=== PATIENT | female | born 1950 | race Caucasian/White ===

== ENCOUNTER 2016-10-20 14:13 | Emergency (ER) | payer BC ==
[~2016-10-20] VITALS: Ht 157.5 cm; Wt 85.5 kg
[~2016-10-20 14:13] MED LIST: ASPI-676 PO; CLON0.2T12 PO; METO-53 PO; TRAM50TA2 PO
[2016-10-20 14:14] VITALS: Ht 157.5 cm; Wt 85.5 kg
[2016-10-20 15:53] VITALS: TEMP 98
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
[2016-10-20] MEDS ORDERED: TRAM50TA2 PO (18:24)
--- NOTE | 2016-10-20 18:43 | RADRPT ---
PROCEDURE: Chest x-ray CLINICAL INDICATION: Pain TECHNIQUE: Chest single view COMPARISON: None FINDINGS: The heart is mildly enlarged. Bony vessels are normal in caliber. There is a focal area of left pelayo perolateral pleural thickening. This may be due to underlying rib fractures which are not well visu alized. Lungs otherwise clear. Costophrenic angles are sharp. No pneumothorax is seen. Visualize d bony thorax is grossly unremarkable. IMPRESSION: 1. Small focal area of left superolateral pleural thickening. This may be related to an occult und erlying rib fracture which is not visualized on the single view. Consider rib series for further ev aluation. 2. Otherwise no acute cardiopulmonary disease. 3. No evidence of pneumothorax. 4. Mild cardiomegaly RPTAT: HH .Matty Leroy MD, Date Time Electronically viewed and signed by .Matty Leroy MD, on 10/20/2016 18:42 .W/
--- NOTE | 2016-10-20 18:44 | RADRPT ---
PROCEDURE: Shoulder x-ray CLINICAL INDICATION: Pain TECHNIQUE: Left shoulder 2 views COMPARISON: None FINDINGS: 2 views of the left shoulder demonstrate no displaced fracture. The humeral head articulates anatom ically with the glenoid fossa. There is mild degenerative change of acromioclavicular joint. Bones are mildly osteopenic. There is superolateral left pleural thickening. The etiology of this is un clear. IMPRESSION: No acute fracture dislocation Mild degenerative change of the acromioclavicular joint Incidental superolateral pleural thickening RPTAT: HH .Matty Leroy MD, Date Time Electronically viewed and signed by .Matty Leroy MD, on 10/20/2016 18:44 .W/
[2016-10-20 19:04] VITALS: BP 247/117; PULSE 87; RESP 20
== END 2016-10-20 19:05 | disposition home or self-care (01) ==
LOC: FTE 14:13
DX: S40.012A Contusion of left shoulder, initial encounter (principal); S20.212A Contusion of left front wall of thorax, initial encounter; I10 Essential (primary) hypertension; S22.32XA Fracture of one rib, left side, initial encounter for closed fracture; E11.9 Type 2 diabetes mellitus without complications; V89.2XXA Person injured in unspecified motor-vehicle accident, traffic, initial encounter; Z79.82 Long term (current) use of aspirin
CPT/HCPCS: 71010; 73030; 93005

== ENCOUNTER 2016-12-11 17:59 | Emergency (ER) | payer BC ==
[~2016-12-11] VITALS: Wt 83.0 kg
[2016-12-11] MEDS ORDERED: KETOROLAC 30 MG INJ IM STA (19:30)
--- NOTE | 2016-12-11 20:34 | RADRPT ---
PROCEDURE: CR Right Elbow CLINICAL INDICATION: Fall, pain TECHNIQUE: AP, lateral, and an oblique radiographs were submitted. COMPARISON: None FINDINGS: Osseous Structures: The osseous elements appear well mineralized and intact. There is a small benign -appearing exostosis extending ventrally off the proximal radial tuberosity. There is a small spur also seen off the lateral epicondyle of the distal right humerus. Joint Spaces: The joint spaces are well maintained. No joint effusion is evident. Soft Tissues: Appear unremarkable. IMPRESSION: 1. No fracture, dislocation, or joint effusion is evident. 2. Small benign spurs are seen 1 off the lateral distal right humeral epicondyle and 1 off the prox imal right radial tuberosity. Physician Maine Date Time Electronically viewed and signed by Physician Maine on 12/11/2016 20:34 /
--- NOTE | 2016-12-11 20:34 | RADRPT ---
PROCEDURE: XR Lumbar Spine. CLINICAL INDICATION: 66-year-old female. Fall TECHNIQUE: AP, lateral and cone-down lateral view of the lumbar spine were obtained. COMPARISON: No prior studies are available for comparison. FINDINGS: There are 5 lumbar-type vertebrae. Lumbar spine is imaged from T11 to the sacrum. Normal alignment. Negative for acute fracture or traumatic subluxation. There is multilevel mild degenerative disk disease greatest at L2-3 with disk space narrowing, endpl ate sclerosis and osteophytes. The posterior elements are unremarkable. Sacroiliac joints appear normal. The soft tissues appear normal. IMPRESSION: Negative for evidence of acute fracture or traumatic subluxation of lumbar spine. RPTAT: HCTS Physician Enoch Date Time Electronically viewed and signed by Physician Enoch on 12/11/2016 20:34 CS/
--- NOTE | 2016-12-11 20:35 | RADRPT ---
PROCEDURE: XR Knee. CLINICAL INDICATION: Left knee pain. TECHNIQUE: Three views of the left knee. COMPARISON: None available FINDINGS: Negative for evidence of acute fracture or dislocation. Moderate osteoarthritis in the medial knee joint compartment with joint space narrowing and osteophy jose and mild patellofemoral arthritis. No joint effusion is identified. Negative for significant soft tissue swelling. IMPRESSION: Negative for evidence of acute fracture or dislocation of the left knee. RPTAT: HCTS Physician Enoch Date Time Electronically viewed and signed by Physician Enoch on 12/11/2016 20:35 CS/
--- NOTE | 2016-12-11 20:44 | ERD ---
ER Documentation Chief Complaint Date/Time DATE: 12/11/16 Chief Complaint Fall. Back pain. Left knee pain. Right elbow pain. Neck pain. HPI The patient is a 66-year-old female with history of hypertension, diabetes mellitus, arthritis, who presents to the Emergency Department with complaint of right elbow pain, left knee pain, left lumbar back pain, neck and head pain status post mechanical slip and fall. The patient reports that 2 days ago, while at the grocery store, she accidentally slipped on a peach, falling backwards and hitting her back and head against the ground. She is uncertain if she had loss of consciousness, though denies any seizure-like activity. Denies any incontinence, tongue biting or weakness of the distal extremities. The patient was then sat up by nearby shoppers, and noted some pain to her left knee and right elbow, which she had during the fall. The patient was then driven home by a friend. Upon waking up the next morning she noted increased pain to the neck, right elbow, left knee and lumbar back. She admits to intermittent throbbing pain to her head, which is relieved with ibuprofen. Last dose of ibuprofen was taken last night. She denies any visual changes, diplopia , blurred vision or vision loss. Denies any syncope. Denies any focal weakness, neurologic deficits, numbness or weakness of the distal extremities. Denies abdominal pain, nausea, vomiting. Denies difficulty with speech or ambulation. Denies chest pain, palpitations or shortness of breath. She rates her current pain as 8 out of 10. She admits to baby aspirin use, but otherwise denies any regular anticoagulant use. No other complaints at this time. ROS All systems reviewed and are negative except as per history of present illness. Medications Home Meds Active Scripts Ibuprofen* (Motrin*) 600 Mg Tab, 600 MG PO Q6, #20 TAB Prov:JUSTIN COBOS PA-C 12/11/16 Hydrocodone/Acetaminophen (Crandall 5-325 Tablet) 1 Each Tablet, 1 EACH PO Q6, #10 TAB Prov:JUSTIN COBOS PA-C 12/11/16 Tramadol HCl (Tramadol HCl) 50 Mg Tablet, 50 MG PO Q6 Y for PAIN, #20 TAB Prov:NATACHA BRADSHAW MD 10/20/16 Reported Medications Tramadol HCl (Tramadol HCl) 50 Mg Tablet, 50 MG PO DAILY 07/01/11 Aspirin (Lorrie Child) 81 Mg Chew, 81 MG PO DAILY 07/01/11 Metoprolol (Lopressor) 50 Mg Tablet, 50 MG PO DAILY 07/01/11 Clonidine Hcl* (Catapres*) 0.2 Mg Tablet, 0.2 MG PO BID 07/01/11 Allergies Allergies: Coded Allergies: No Known Allergy (Unverified , 07/01/11) PMhx/Soc History of Surgery: No Anesthesia Reaction: No Hx Neurological Disorder: No Hx Respiratory Disorders: No Hx Cardiac Disorders: Yes (HTN. DM. ARTHRITIS) Hx Psychiatric Problems: No Hx Miscellaneous Medical Probl: No Hx Alcohol Use: No Hx Substance Use: No Hx Tobacco Use: No Smoking Status: Never smoker Physical Exam Vitals Vital Signs Date Time Temp Pulse Resp B/P Pulse Ox O2 Delivery O2 Flow Rate FiO2 12/11/16 21:16 96 18 188/98 97 Room Air 12/11/16 18:04 99.0 101 17 178/89 98 Physical Exam GENERAL: Well-developed, well-nourished, female, in no acute distress. HEENT: Head is normocephalic, atraumatic. No hematomas. No step-offs. No raccoon eyes. No scleral pallor or icterus. Pupils equal, round and reactive to light. Extraocular movements intact. Conjunctiva pink. Nares are patent bilaterally. No nasal CSF leak. No hemotympanum. No Shetty sign. Clear oropharynx. NECK: Supple. Trachea midline. Mild tenderness to palpation over the left paracervical muscles of the neck. No midline bony tenderness or step-offs. No crepitus. No nuchal rigidity. No meningismus. RESPIRATORY: Lungs are clear to auscultation bilaterally. Equal breath sounds. Normal expiratory effort. CARDIOVASCULAR: Regular rate and rhythm. S1 and S2 normal. Distal pulses are palpable, 2+ bilaterally. Capillary refill is less than 2 seconds. GASTROINTESTINAL: Abdomen is soft, non-tender, and non-distended. No pulsatile abdominal masses. BACK: No midline tenderness. Tenderness to palpation and palpable spasm over the left paraspinal muscles of the lumbar back. No step-offs. No bony tenderness. Normal flexion and extension. Negative straight leg raise bilaterally. No saddle region anesthesia. EXTREMITIES: No clubbing, cyanosis, or edema. Normal skin perfusion. Mild tenderness palpation over the lateral aspect of the right elbow and to the anterior left knee. No joint effusions. No crepitus. Full range of motion of both the upper and lower extremities bilaterally. Muscle tone is normal. No focal swelling or erythema. Compartments are soft. Distal neurovascular status intact. No snuffbox tenderness. NEUROLOGIC: The patient is alert, awake, and oriented x 3. No focal neurologic deficits. Cranial nerves are grossly intact. Motor and sensation grossly intact. INTEGUMENT: Skin is intact. Warm and dry. No ecchymosis, abrasions, lacerations. PSYCHIATRIC: Cooperative; appropriate. Results 24 hrs Current Medications Medications (Trade) Dose Ordered Sig/Amanda Route PRN Reason Start Time Stop Time Status Last Admin Dose Admin Ketorolac Tromethamine (Toradol) 30 mg ONCE STAT IM 12/11/16 19:30 12/11/16 19:32 DC 12/11/16 19:45 Procedures/MDM DIAGNOSTIC TESTS AND INTERPRETATION: PROCEDURE: CR Right Elbow CLINICAL INDICATION: Fall, pain TECHNIQUE: AP, lateral, and an oblique radiographs were submitted. COMPARISON: None FINDINGS: Osseous Structures: The osseous elements appear well mineralized and intact. There is a small benign-appearing exostosis extending ventrally off the proximal radial tuberosity. There is a small spur also seen off the lateral epicondyle of the distal right humerus. Joint Spaces: The joint spaces are well maintained. No joint effusion is evident. Soft Tissues: Appear unremarkable. IMPRESSION: 1. No fracture, dislocation, or joint effusion is evident. 2. Small benign spurs are seen 1 off the lateral distal right humeral epicondyle and 1 off the proximal right radial tuberosity. Physician [place] Date Time Electronically viewed and signed by Physician Maine on 12/11/2016 20:34 PROCEDURE: XR Knee. CLINICAL INDICATION: Left knee pain. TECHNIQUE: Three views of the left knee. COMPARISON: None available FINDINGS: Negative for evidence of acute fracture or dislocation. Moderate osteoarthritis in the medial knee joint compartment with joint space narrowing and osteophytes and mild patellofemoral arthritis. No joint effusion is identified. Negative for significant soft tissue swelling. IMPRESSION: Negative for evidence of acute fracture or dislocation of the left knee. Physician Enoch Date Time Electronically viewed and signed by Physician Enoch on 12/11/2016 20: 35 PROCEDURE: XR Lumbar Spine. CLINICAL INDICATION: 66-year-old female. Fall TECHNIQUE: AP, lateral and cone-down lateral view of the lumbar spine were obtained. COMPARISON: No prior studies are available for comparison. FINDINGS: There are 5 lumbar-type vertebrae. Lumbar spine is imaged from T11 to the sacrum. Normal alignment. Negative for acute fracture or traumatic subluxation. There is multilevel mild degenerative disk disease greatest at L2-3 with disk space narrowing, endplate sclerosis and osteophytes. The posterior elements are unremarkable. Sacroiliac joints appear normal. The soft tissues appear normal. IMPRESSION: Negative for evidence of acute fracture or traumatic subluxation of lumbar spine. Physician Enoch Date Time Electronically viewed and signed by Physician Enoch on 12/11/2016 20: 34 PROCEDURE: CT HEAD WITHOUT CONTRAST: CLINICAL INDICATION: 66 years age, female, head injury . COMPARISON: None TECHNIQUE: CT of the head was performed without IV contrast. Dose information: The estimated radiation dose (CTDIvol mGy) for each series in this exam is 43 . The estimated cumulative dose (DLP mGy-cm) is 720 . FINDINGS: Parenchyma: No acute intracranial hemorrhage, mass effect or significant midline shift. Negative for evidence of large territory infarct. Mild predominantly frontal lobe cerebral tissue loss. Mild intracranial atherosclerosis. Ventricles and extra-axial spaces: Prominence of the ventricles, basal cisterns and sulci in keeping with predominantly frontal lobe tissue loss. Visualized paranasal sinuses: Clear. Mastoid air cells: Clear. Bones: No focal abnormality. Additional comment: None. IMPRESSION: 1. Negative for evidence of acute intracranial injury. Negative for evidence of acute intracranial hemorrhage or mass effect. 2. Mild predominately frontal lobe cerebral tissue loss. 3. Mild intracranial atherosclerosis. Physician Enoch Date Time Electronically viewed and signed by Physician Enoch on 12/11/2016 20: 47 PROCEDURE: CT CERVICAL SPINE WITHOUT CONTRAST CLINICAL INDICATION: 66-year-old female. Trauma. TECHNIQUE: A CT of the cervical spine was performed utilizing thin section axial images from the skull base through the thoracic inlet. Sagittal and coronal reformatted images were made. The CTDIvol is 22 mGy and the DLP is 141 mGycm. COMPARISON: No prior studies are available for comparison. FINDINGS: Cervical spine is imaged from the skull base to T1 Alignment: Normal. Vertebrae: Vertebral bodies and posterior elements are intact without acute fracture. There is developmental nonfusion of the posterior arch of C1. Multilevel degenerative disk disease greatest at C5-6 with disk space narrowing and osteophytes. There is ligamentous calcification involving the transverse ligament and the outer annulus of discs greatest at C3-4 and C4-5 that may be seen with CPPD. Extra-vertebral soft tissues: Prominent lymph nodes are likely reactive. Additional comment: Negative for apical pneumothorax. IMPRESSION:Negative for evidence of acute fracture or traumatic subluxation of cervical spine. Physician Enoch Date Time Electronically viewed and signed by Physician Enoch on 12/11/2016 20: 55 MEDICAL DECISION MAKING: This is a 66-year-old female presenting to the Emergency Department with right elbow pain, left lumbar back pain, left knee pain, neck pain, head pain s/p slip and fall in the grocery store 2 days ago. The patient pain hand mild tenderness to palpation over the lateral right elbow, anterior left knee and left paraspinal muscles of the back on physical examination. Her extremities were neurovascularly intact with no gross deformities or crepitus noted. No snuffbox tenderness. Compartments were soft. The differential diagnosis includes , but is not limited to, sprain, strain, fracture, dislocation, subluxation, neurovascular injury, compartment syndrome. CT head with no acute intracranial abnormalities. CT c-spine with no fractures, dislocations, subluxations. No evidence of neurovascular compromised distal to injury. No evidence of compartment syndrome or occult fracture. No significant acute abnormalities were noted on the diagnostic test modalities ordered. After rest and administration of Toradol, the patient reports no new complaints and decreased pain. Upon my review and interpretation of the patients presentation, clinical data, and overall ER course, I believe the patients symptoms are most consistent with right elbow contusion, left knee pain, lumbar back pain, cervical strain, head injury s/p fall. At this time, the patient is in stable condition, and therefore can be discharged home with a prescription for Ibuprofen and Crandall and strict return precautions for signs of worsening condition. The patient is advised to follow up with a primary care provider within 2 to 3 days for reevaluation and further management, or to return to the ER sooner for any worsening symptoms. She is instructed on further outpatient pain control methods , including rest, icing and elevation. I shared all diagnostic imaging studies with the patient at length and in great detail, and the patient verbally understands and agrees with the plan for further observation and care as an outpatient. At the time of discharge all questions were answered. Departure Diagnosis: Primary Impression: Fall Encounter type: initial encounter Qualified Code: W19.XXXA - Fall, initial encounter Additional Impressions: Contusion of right elbow Encounter type: initial encounter Qualified Code: S50.01XA - Contusion of right elbow, initial encounter Left knee pain Chronicity: acute Qualified Code: M25.562 - Acute pain of left knee Lumbar back pain Chronicity: acute Back pain laterality: left Sciatica presence: without sciatica Qualified Code: M54.5 - Acute left-sided low back pain without sciatica Cervical strain Encounter type: initial encounter Qualified Code: S16.1XXA - Cervical strain , initial encounter Closed head injury Encounter type: initial encounter Qualified Code: S09.90XA - Closed head injury, initial encounter Condition: Stable Patient Instructions: Contusion, Elbow, Fall, Mechanical, Neck Sprain/Strain, R.I.C.E. Additional Instructions: Call your primary care doctor TOMORROW for an appointment during the next 1-2 days.See the doctor sooner or return here if your condition worsens before your appointment time. JUSTIN COBOS PA-C Dec 11, 2016 20:44
--- NOTE | 2016-12-11 20:48 | RADRPT ---
PROCEDURE: CT HEAD WITHOUT CONTRAST: CLINICAL INDICATION: 66 years age, female, head injury . COMPARISON: None TECHNIQUE: CT of the head was performed without IV contrast. Dose information: The estimated radiation dose (CTDIvol mGy) for each series in this exam is 43 . The estimated cumulative dose (DLP mGy-cm) is 720 . FINDINGS: Parenchyma: No acute intracranial hemorrhage, mass effect or significant midline shift. Negative for evidence of large territory infarct. Mild predominantly frontal lobe cerebral tissue loss. Mild int racranial atherosclerosis. Ventricles and extra-axial spaces: Prominence of the ventricles, basal cisterns and sulci in keeping with predominantly frontal lobe tissue loss. Visualized paranasal sinuses: Clear. Mastoid air cells: Clear. Bones: No focal abnormality. Additional comment: None. IMPRESSION: 1. Negative for evidence of acute intracranial injury. Negative for evidence of acute intracranial hemorrhage or mass effect. 2. Mild predominately frontal lobe cerebral tissue loss. 3. Mild intracranial atherosclerosis. RPTAT: HCTS Physician Enoch Date Time Electronically viewed and signed by Physician Enoch on 12/11/2016 20:47 CS/
--- NOTE | 2016-12-11 20:55 | RADRPT ---
PROCEDURE: CT CERVICAL SPINE WITHOUT CONTRAST CLINICAL INDICATION: 66-year-old female. Trauma. TECHNIQUE: A CT of the cervical spine was performed utilizing thin section axial images from the s kull base through the thoracic inlet. Sagittal and coronal reformatted images were made. The CTDIv ol is 22 mGy and the DLP is 141 mGycm. COMPARISON: No prior studies are available for comparison. FINDINGS: Cervical spine is imaged from the skull base to T1 Alignment: Normal. Vertebrae: Vertebral bodies and posterior elements are intact without acute fracture. There is devel opmental nonfusion of the posterior arch of C1. Multilevel degenerative disk disease greatest at C5- 6 with disk space narrowing and osteophytes. There is ligamentous calcification involving the trans verse ligament and the outer annulus of discs greatest at C3-4 and C4-5 that may be seen with CPPD. Extra-vertebral soft tissues: Prominent lymph nodes are likely reactive. Additional comment: Negative for apical pneumothorax. IMPRESSION: Negative for evidence of acute fracture or traumatic subluxation of cervical spine. RPTAT: HCTS Physician Enoch Date Time Electronically viewed and signed by Physician Enoch on 12/11/2016 20:55 /
[2016-12-11] MEDS ORDERED: HYDR-906 PO (21:04)
[2016-12-11] MEDS ORDERED: IBUP-1542 PO (21:04)
[2016-12-11 21:16] VITALS: BP 188/98; PULSE 96; RESP 18
== END 2016-12-11 21:18 | disposition home or self-care (01) ==
LOC: FTE 17:59
DX: S50.01XA Contusion of right elbow, initial encounter (principal); S89.92XA Unspecified injury of left lower leg, initial encounter; S16.1XXA Strain of muscle, fascia and tendon at neck level, initial encounter; S09.90XA Unspecified injury of head, initial encounter; I10 Essential (primary) hypertension; E11.9 Type 2 diabetes mellitus without complications; W01.0XXA Fall on same level from slipping, tripping and stumbling without subsequent striking against object, initial encounter; Y92.9 Unspecified place or not applicable; Z79.82 Long term (current) use of aspirin
CPT/HCPCS: 70450; 72100; 72125; 73080; 73562; 96372; J1885; Z7502

== ENCOUNTER 2017-01-24 19:17 | Emergency (ER) | payer BC ==
[~2017-01-24] VITALS: Ht 167.6 cm; Wt 82.5 kg
[~2017-01-24 19:17] MED LIST changes: +HYDR-906 PO; +IBUP-1542 PO
[2017-01-24 19:20] VITALS: Ht 167.6 cm; Wt 82.5 kg
[2017-01-24 19:36] VITALS: BP 183/91; PULSE 81; RESP 16; TEMP 98.4
--- NOTE | 2017-01-24 21:22 | ERD ---
ER Documentation Chief Complaint Date/Time DATE: 01/24/17 TIME: 21:16 Chief Complaint R SIDED FACIAL DROOP SINCE YESTERDAY, HEADACHE, DIZZINESS, L EYE REDNESS HPI 66 y/o female, diabetic, hypertensive, ambulatory to the ED c/o a one day h/ o right sided facial numbness and weakness. No headache, visual changes or any other focal weakness or numbness. No dizziness or difficulty walking. No skin rash. Denies chest pain, palpitations, shortness of breath, cough, abdominal pain, N/V/D/C/, URI symptoms, leg pain, swelling, fevers or chills. ROS All systems reviewed and are negative except as per history of present illness. Medications Home Meds Active Scripts Valacyclovir HCl (Valacyclovir) 1,000 Mg Tablet, 1000 MG PO TID for 7 Days, TAB Prov:ADELAIDE GOOD MD 01/24/17 Ibuprofen* (Motrin*) 600 Mg Tab, 600 MG PO Q6, #20 TAB Prov:JUSTIN COBOS PA-C 12/11/16 Hydrocodone/Acetaminophen ([place] 5-325 Tablet) 1 Each Tablet, 1 EACH PO Q6, #10 TAB Prov:JUSTIN COBOS PA-C 12/11/16 Tramadol HCl (Tramadol HCl) 50 Mg Tablet, 50 MG PO Q6 Y for PAIN, #20 TAB Prov:NATACHA BRADSHAW MD 10/20/16 Reported Medications Tramadol HCl (Tramadol HCl) 50 Mg Tablet, 50 MG PO DAILY 07/01/11 Aspirin (Lorrie Child) 81 Mg Chew, 81 MG PO DAILY 07/01/11 Metoprolol (Lopressor) 50 Mg Tablet, 50 MG PO DAILY 07/01/11 Clonidine Hcl* (Catapres*) 0.2 Mg Tablet, 0.2 MG PO BID 07/01/11 Allergies Allergies: Coded Allergies: No Known Allergy (Unverified , 01/24/17) PMhx/Soc Reviewed in chart. As per HPI. History of Surgery: Yes (UTERINE FIBROID AND LEFT KNEE SCOPE) Anesthesia Reaction: No Hx Neurological Disorder: No Hx Respiratory Disorders: No Hx Cardiac Disorders: Yes (HTN) Hx Psychiatric Problems: No Hx Miscellaneous Medical Probl: Yes (DIABETIC) Hx Alcohol Use: No Hx Substance Use: No Hx Tobacco Use: No Smoking Status: Never smoker FmHx No stoke, SAH or cancer Physical Exam Vitals Physical Exam Const: Alert, anxious Head: Atraumatic Eyes: Normal Conjunctiva. ANTHONY. EOMI, no nystagmus. ENT: Normal External Ears, Nose and Mouth. Neck: Full range of motion.Nontender, Carotids 2+ bilaterally without bruits. Resp: Clear to auscultation bilaterally Cardio: Regular rate and rhythm, no murmurs Abd: Soft, non tender, non distended. Normal bowel sounds Skin: No petechiae or rashes Back: No midline or flank tenderness Ext: No cyanosis, or edema Neur: Awake and alert. Oriented & 4. Left facial weakness with asymmetry at rest. No forehead motion. Right Eye: Incomplete lid closure. Mouth:slight movement. CN II- and VIII-XII intact. Motor and sensory equal bilaterally. Normal gait. negative Romberg. No dysdiadochokinesis. Psych: Normal Mood and Affect Results 24 hrs Laboratory Tests Test 01/24/17 20:23 Bedside Glucose 152mg/dL Procedures/MDM DOCUMENTS REVIEWED: ED nurse, prior ED, prior records MEDICAL DECISION MAKIN66 y/o female, diabetic, hypertensive, ambulatory to the ED c/o a one day h/o right sided facial numbness and weakness. 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 House- Brackmann Grade IV. No other focal deficit or signs of CVA/TIA. No headache, ataxia or signs of increased ICP. No rash or risk factors for Lyme's disease. No a-fib or cardiac dysrhythmia. Neuroimaging not indicated at this point. I had an extensive discussion with the patient and her daughter, who was translating, regarding initiation of steroids and the risks of glucose intolerance. She is refusing steroids at this time but will take antivirals the efficacy of which is questionable. Stable for discharge with precautionary instructions and outpatient followup as counseled. Counseled patient and family regarding diagnostic workup, diagnosis and need for followup. Understands to return to ED if symptoms worsen, including but not limited to any new weakness/numbness, or any other concerns. Departure Diagnosis: Primary Impression: Facial weakness Additional Impression: Duncan's palsy Condition: Stable ADELAIDE GOOD MD Jan 24, 2017 21:22
[2017-01-24] MEDS ORDERED: VALA1000 PO (21:23)
== END 2017-01-24 21:37 | disposition home or self-care (01) ==
LOC: E/R 19:17
DX: G51.0 Bell's palsy (principal); I10 Essential (primary) hypertension; E11.9 Type 2 diabetes mellitus without complications; Z79.82 Long term (current) use of aspirin
CPT/HCPCS: 82962; Z7502; 99283